=== PATIENT | male | born 1995 | race Caucasian/White ===

== ENCOUNTER 2018-01-08 16:28 | Emergency (ER) | payer OTHER ==
[~2018-01-08] VITALS: Ht 177.8 cm; Wt 73.9 kg
[2018-01-08 16:56] VITALS: BP 116/72
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
[2018-01-08] MEDS: Methocarbamol 750mg tab ORAL ONE ×2 (17:17→17:19)
[2018-01-08] MEDS ORDERED: TYLENOL EXTRA500 MG ORAL (17:23)
[2018-01-08] MEDS ORDERED: ROBAXIN500 MG PO (17:23)
[2018-01-08] MEDS ORDERED: LIDODERM700 M1 TOPIC (17:23)
[2018-01-08 17:39] VITALS: BP 116/72
== END 2018-01-08 17:35 | disposition home or self-care (01) ==
LOC: EMR 17:00
DX: S16.1XXA Strain of muscle, fascia and tendon at neck level, initial encounter (principal); S09.90XA Unspecified injury of head, initial encounter; V43.52XA Car driver injured in collision with other type car in traffic accident, initial encounter; Y92.414 Local residential or business street as the place of occurrence of the external cause
CPT/HCPCS: 99284